=== PATIENT | male | born 1960 | race Caucasian/White ===

== ENCOUNTER 2020-03-18 12:39 | Emergency (ER) | payer OTHER ==
[~2020-03-18] VITALS: Ht 170.2 cm; Wt 81.6 kg
[2020-03-18 12:43] VITALS: BP 130/81
--- NOTE | 2020-03-18 12:48 | NUR ---
59 Y/O MALE PRESENTS WITH R SIDED FACIAL SWELLING THAT BEGAN YESTERDAY MORNING. PT DENIES ANY INJURY. NO FACIAL ASYMMETRY NOTED. NO NEURO DEFECITS NOTED. DENIES ANY PAIN TO AREA. DENIES CHANGES IN VISION. AAOX4. AMBULATORY WITH STEADY GAIT. DENIES N/V/D. RESP EVEN AND UNLABORED. NO PMH NKDA
[2020-03-18 13:32] VITALS: BP 130/81
--- NOTE | 2020-03-18 13:32 | NUR ---
Patient discharged with v/s stable. Written and verbal after care instructions given and explained. Patient verbalized understanding. Ambulatory with steady gait. All questions addressed prior to discharge. Advised to follow up with PMD.
== END 2020-03-18 13:32 | disposition home or self-care (01) ==
LOC: MED 12:39
DX: K04.7 Periapical abscess without sinus (principal); R22.0 Localized swelling, mass and lump, head
CPT/HCPCS: 99281

== ENCOUNTER 2023-01-01 19:41 | Emergency (ER) | payer OTHER ==
[~2023-01-01] VITALS: Ht 188 cm; Wt 95.3 kg
[2023-01-01 20:05] VITALS: BP 125/70; PULSE 68; RESP 16; TEMP 97.1; O2SAT 95
[2023-01-01] MEDS ORDERED: cephALEXin 500 MG CAP PO ONE (20:45)
[2023-01-01] MEDS ORDERED: IBUPROFEN 600 MG TAB PO ONE (20:45)
[2023-01-01] MEDS ORDERED: CRUSHER, PILL MC ONE (21:15)
[2023-01-01] MEDS ORDERED: CEPH-588 PO (21:45)
[2023-01-01 21:48] VITALS: BP 125/70; PULSE 68; RESP 16; TEMP 97.1; O2SAT 95
== END 2023-01-01 21:48 | disposition home or self-care (01) ==
LOC: MED 19:41
DX: L03.115 Cellulitis of right lower limb (principal); Z79.899 Other long term (current) drug therapy
CPT/HCPCS: 73562; 99283

== ENCOUNTER 2023-12-18 11:12 | Emergency (ER) | payer OTHER ==
[~2023-12-18] VITALS: Ht 188 cm; Wt 92.1 kg
[~2023-12-18 11:12] MED LIST: CEPH-588 PO
[2023-12-18 11:24] VITALS: BP 97/63; PULSE 64; RESP 16; TEMP 97.6; O2SAT 96
[2023-12-18] MEDS ORDERED: ACET500T99 PO (12:50)
[2023-12-18] MEDS: ACETAMINOPHEN EXTRA STRENGTH 500 MG TAB PO ONE (12:57)
[2023-12-18 12:58] VITALS: BP 97/63; PULSE 64; RESP 16; TEMP 36.44736; O2SAT 96
== END 2023-12-18 12:58 | disposition home or self-care (01) ==
LOC: MED 11:12
DX: S06.0X0A Concussion without loss of consciousness, initial encounter (principal); Z79.899 Other long term (current) drug therapy; W01.198A Fall on same level from slipping, tripping and stumbling with subsequent striking against other object, initial encounter; Y92.89 Other specified places as the place of occurrence of the external cause; Y93.89 Activity, other specified; Y99.8 Other external cause status
CPT/HCPCS: 70450; 99284